=== PATIENT | male | born 1990 | race Caucasian/White ===

== ENCOUNTER 2020-07-22 01:48 | Emergency (ER) | payer OTHER ==
[~2020-07-22] VITALS: Ht 188 cm; Wt 81.6 kg
--- NOTE | 2020-07-22 02:01 | NUR ---
ED Nurse Note: Pt walked into the ED from home with c/o left side rash near chest and armpit area onset one week ago. Pt stated slight burning sensation on site and states clear discharge in the area. Pt stated he changed his deodorant in the past week. Pt stated he had a similar reaction when he got bit by a spider. Pt denies CP/SOB/, N/V/D, fever or chills. Pt is aAOx4 and ambulatory
--- NOTE | 2020-07-22 02:02 | NUR ---
ED Nurse Note: ERMD at bedside
[2020-07-22 02:06] VITALS: BP 140/98
[2020-07-22] MEDS ORDERED: VALTREX500 MG ORAL (02:09)
--- NOTE | 2020-07-22 02:13 | Emergency Room Report ---
History of Present Illness General Chief Complaint: Skin Rash/Abscess Source: Patient Present Illness HPI This is a 30-year-old male with a history of HIV been on medication for 6 months. He presents with chief complaint of a rash. Been ongoing for a week. No fever chills but no nausea no vomiting. Nothing made it better. Nothing made it worse. Pain is 7 out of 10. Allergies: Coded Allergies: No Known Allergies (Unverified , 07/22/20) COVID-19 Screening Contact w/high risk pt: No Experienced COVID-19 symptoms?: No COVID-19 Testing performed MANAGER TRADE: No Patient History Past Medical History: see triage record, old chart reviewed, HIV Past Surgical History: none Pertinent Family History: none Social History: Denies: smoking Immunizations: other Reviewed Nursing Documentation: PMH: Agreed; PSxH: Agreed Review of Systems Eye: Denies: eye pain, blurred vision ENT: Denies: ear pain, nose congestion, throat swelling Respiratory: Denies: cough, shortness of breath Cardiovascular: Denies: chest pain, palpitations Gastrointestinal: Denies: abdominal pain, diarrhea, nausea, vomiting Musculoskeletal: Denies: back pain, joint pain Skin: Reports: rash Neurological: Denies: headache, numbness Endocrine: Denies: increased thirst, increased urine Hematologic/Lymphatic: Denies: easy bruising All Other Systems: negative except mentioned in HPI Physical Exam Vital Signs Date Time Temp Pulse Resp B/P (MAP) Pulse Ox O2 Delivery O2 Flow Rate FiO2 07/22/20 01:55 98.4 100 16 140/98 (112) 98 Room Air Vitals unremarkable Sp02 EP Interpretation: reviewed, normal General Appearance: well appearing, no apparent distress, alert Head: normocephalic, atraumatic Eyes: bilateral eye PERRL, bilateral eye EOMI ENT: hearing grossly normal, normal pharynx Neck: full range of motion, supple, no meningismus Respiratory: chest non-tender, lungs clear, normal breath sounds Cardiovascular #1: regular rate, rhythm, no murmur Gastrointestinal: normal bowel sounds, non tender, no mass, no organomegaly, no bruit, non-distended Musculoskeletal: back normal, normal range of motion, gait/station normal Psychiatric: mood/affect normal Skin: other - He has vesicular lesion along the T10 distribution on the left side. Pretty significant vesicles. Medical Decision Making Diagnostic Impression: Primary Impression: Shingles Qualified Codes: B02.9 - Zoster without complications ER Course Patient presents with shingles. This is probably worsened because of his weakened immune system. There is no disseminated spread. Will start him on Valtrex. Last Vital Signs Date Time Temp Pulse Resp B/P (MAP) Pulse Ox O2 Delivery O2 Flow Rate FiO2 07/22/20 01:55 98.4 100 16 140/98 (112) 98 Room Air Status: unchanged Disposition: HOME, SELF-CARE Condition: Stable Scripts Valacyclovir Hcl* (VALTREX*) 500 Mg Tablet 1000 MG ORAL THREE TIMES A DAY for 7 Days, TAB 0 Refills Prov: Bj Joiner MD 07/22/20 Referrals: Mikayla GANNON,REFERRING (PCP) Additional Instructions: Follow-up with your doctor in 7 days. Follow-up with [facility] ([phone]) to restart back on your HIV medication. Return if symptoms worsen. Bj Joiner MD Jul 22, 2020 02:13
--- NOTE | 2020-07-22 02:25 | NUR ---
ER DISCHARGE NOTE: Patient is cleared to be discharged per ERMD, pt is aox4, on room air, with stable vital signs. pt was given dc and prescription instructions, pt was able to verbalize understanding, pt id band removed. pt is able to ambulate with steady gait. pt took all belongings.
[2020-07-22 02:37] VITALS: BP 140/98
== END 2020-07-22 02:38 | disposition home or self-care (01) ==
LOC: EMR 02:04
DX: B02.9 Zoster without complications (principal); B20 Human immunodeficiency virus [HIV] disease
CPT/HCPCS: 99282